=== PATIENT | male | born 1985 | race African-American/Black ===

== ENCOUNTER 2018-04-09 22:51 | Inpatient (IN) | payer SELFPAY ==
[~2018-04-09] VITALS: Ht 190.5 cm; Wt 127.9 kg
[2018-04-09 23:32] VITALS: Ht 190.5 cm; Wt 127.9 kg
[2018-04-10 03:06] LABS: BASOPHIL % 0.6 % (0-2); PLATELET COUNT 190 x10^3mcL (130-400); RED CELL DISTRIBUTION WIDTH 13.1 % (11.5-14.5)
[2018-04-10 03:13] LABS: CALCIUM 8.5 mg/dL (8.5-10.1); CARBON DIOXIDE 19.4 mmol/L (21-32); CHLORIDE SERUM 95 mmol/L (98-107); CREATININE SERUM 1.2 mg/dL (0.7-1.3); GFR1 > 60 mL/min; POTASSIUM SERUM 3.9 mmol/L (3.5-5.1); SODIUM SERUM 130 mmol/L (136-145)
[2018-04-10 03:15] LABS: ALBUMIN 3.7 g/dL (3.4-5.0); ALKALINE PHOSPHATASE 141 U/L (46-116); ALT/SGPT 48 U/L (16-63); AST/SGOT 11 U/L (15-37); BILIRUBIN TOTAL 0.47 mg/dL (0.20-1.00); LIPASE 731 IU/L (73-393); TOTAL PROTEIN, SERUM 8.2 g/dL (6.4-8.2)
[2018-04-10 03:32] LABS: microscopic required? NO
[2018-04-10 04:17] LABS: GLUCOSE SERUM 590 mg/dL (74-106)
[2018-04-10 04:43] LABS: UA SPECIFIC GRAVITY <=1.005 (1.005-1.035); urine erythrocyte NEGATIVE (NEGATIVE)
[2018-04-10 04:50] LABS: AMPHETAMINE QUAL UR NONE DETECTED (See below)
[2018-04-10 05:37] LABS: AMYLASE 48 U/L (25-115); CHOLESTEROL 177 mg/dL (<200); MAGNESIUM 2.1 mg/dL (1.8-2.4); PHOSPHOROUS 3.5 mg/dL (2.5-4.9)
[2018-04-10 05:38] LABS: CHOLESTEROL/HDL RATIO 9.3; HDL CHOLESTEROL 19 mg/dL (40-60); TRIGLYCERIDES 881 mg/dL (<150)
[2018-04-10 05:46] LABS: FREE T4 1.28 ng/dL (0.76-1.46); FREE THYROXINE INDEX 2.8 ug/dL (1.4-4.5); T4(THYROXINE) 8.2 ug/dL (4.7-13.3)
[2018-04-10 06:15] VITALS: BP 158/112
[2018-04-10 09:07] LABS: CALCIUM 8.4 mg/dL (8.5-10.1); CHLORIDE SERUM 100 mmol/L (98-107); CREATININE SERUM 0.9 mg/dL (0.7-1.3); GFR1 > 60 mL/min; GLUCOSE SERUM 327 mg/dL (74-106); POTASSIUM SERUM 3.3 mmol/L (3.5-5.1); SODIUM SERUM 136 mmol/L (136-145)
[2018-04-10 09:13] LABS: BASOPHIL % 0.4 % (0-2); PLATELET COUNT 196 x10^3mcL (130-400); RED CELL DISTRIBUTION WIDTH 13.1 % (11.5-14.5)
[2018-04-10 09:39] VITALS: BP 148/100
[2018-04-10 14:26] VITALS: BP 143/86
[2018-04-10 18:02] VITALS: BP 154/104
[2018-04-10 20:41] VITALS: BP 140/88
[2018-04-11 05:50] VITALS: BP 140/95
[2018-04-11 06:14] LABS: CALCIUM 8.5 mg/dL (8.5-10.1); CARBON DIOXIDE 25.4 mmol/L (21-32); CHLORIDE SERUM 103 mmol/L (98-107); CREATININE SERUM 0.8 mg/dL (0.7-1.3); GFR1 > 60 mL/min; GLUCOSE SERUM 217 mg/dL (74-106); LIPASE 296 IU/L (73-393); POTASSIUM SERUM 3.7 mmol/L (3.5-5.1); SODIUM SERUM 138 mmol/L (136-145)
[2018-04-11 07:06] LABS: BASOPHIL % 0.6 % (0-2); PLATELET COUNT 183 x10^3mcL (130-400); RED CELL DISTRIBUTION WIDTH 13.4 % (11.5-14.5)
[2018-04-11 09:12] VITALS: BP 147/93
[2018-04-11] MEDS ORDERED: ECO81 PO (11:59)
[2018-04-11] MEDS ORDERED: BG FS (12:00)
[2018-04-11] MEDS ORDERED: METFORMIN HYDR500 M1 PO (12:01)
[2018-04-11 13:19] VITALS: BP 147/93
[2018-04-11 13:43] VITALS: BP 165/97
== END 2018-04-11 14:15 | disposition home or self-care (01) | DRG 637 ==
LOC: ED 22:51 → DU 04-10 04:30
PROVIDERS: Emergency Medicine; Family Medicine
DX: E11.65 Type 2 diabetes mellitus with hyperglycemia (principal); K85.90 Acute pancreatitis without necrosis or infection, unspecified; E87.1 Hypo-osmolality and hyponatremia; K52.9 Noninfective gastroenteritis and colitis, unspecified; L72.3 Sebaceous cyst; Z71.3 Dietary counseling and surveillance
CPT/HCPCS: 36600; 82962; 83880; 84439; G0480; J1885; J2270; J2405; J7030; Q0092

== ENCOUNTER 2018-06-05 22:12 | Inpatient (IN) | payer SELFPAY ==
[~2018-06-05] VITALS: Ht 190.5 cm; Wt 107.0 kg
[~2018-06-05 22:12] MED LIST: BG FS; ECO81 PO; METFORMIN HYDR500 M1 PO
[2018-06-05 22:19] VITALS: Ht 190.5 cm; Wt 107.0 kg
[2018-06-05 22:57] LABS: BASOPHIL % 0.6 % (0-2); PLATELET COUNT 130 x10^3mcL (130-400); RED CELL DISTRIBUTION WIDTH 14.1 % (11.5-14.5)
[2018-06-05 23:10] LABS: BILIRUBIN TOTAL 0.6 mg/dL (0.20-1.00); CALCIUM 9.2 mg/dL (8.5-10.1); CREATININE SERUM 1.5 mg/dL (0.7-1.3); POTASSIUM SERUM 3.4 mmol/L (3.5-5.1)
[2018-06-05 23:14] LABS: TOTAL PROTEIN, SERUM 9.3 g/dL (6.4-8.2)
[2018-06-05 23:34] LABS: CARBON DIOXIDE 8.6 mmol/L (21-32)
[2018-06-06 01:42] LABS: UA SPECIFIC GRAVITY 1.025 (1.005-1.035); microscopic required? YES; urine erythrocyte 2+ (NEGATIVE)
[2018-06-06 01:43] LABS: AMYLASE 172 U/L (25-115)
[2018-06-06 01:44] LABS: CHOLESTEROL 235 mg/dL (<200); CHOLESTEROL/HDL RATIO 7.8; HDL CHOLESTEROL 30 mg/dL (40-60); LIPASE 1656 IU/L (73-393); TRIGLYCERIDES 634 mg/dL (<150)
[2018-06-06 01:57] LABS: FREE T4 0.85 ng/dL (0.76-1.46); FREE THYROXINE INDEX 1.7 ug/dL (1.4-4.5); T4(THYROXINE) 4.7 ug/dL (4.7-13.3)
[2018-06-06 02:03] LABS: T3 TOTAL 0.61 ng/mL
[2018-06-06 02:43] LABS: AMPHETAMINE QUAL UR NONE DETECTED (See below)
[2018-06-06 03:05] VITALS: BP 154/97
[2018-06-06 05:14] LABS: BASOPHIL % 0.7 % (0-2); PLATELET COUNT 133 x10^3mcL (130-400); RED CELL DISTRIBUTION WIDTH 13.9 % (11.5-14.5)
[2018-06-06 05:17] LABS: CHLORIDE SERUM 113 mmol/L (98-107); CREATININE SERUM 1.2 mg/dL (0.7-1.3); GFR1 > 60 mL/min; GLUCOSE SERUM 181 mg/dL (74-106); MAGNESIUM 2.6 mg/dL (1.8-2.4); SODIUM SERUM 144 mmol/L (136-145)
[2018-06-06 05:22] LABS: CARBON DIOXIDE 9.5 mmol/L (21-32); POTASSIUM SERUM 2.4 mmol/L (3.5-5.1)
[2018-06-06 05:33] VITALS: BP 148/88
[2018-06-06 07:33] VITALS: BP 138/89
[2018-06-06 09:40] LABS: BASOPHIL % 0.7 % (0-2); PLATELET COUNT 129 x10^3mcL (130-400); RED CELL DISTRIBUTION WIDTH 13.9 % (11.5-14.5)
[2018-06-06 09:52] LABS: CALCIUM 8.8 mg/dL (8.5-10.1); CARBON DIOXIDE 14.1 mmol/L (21-32); CHLORIDE SERUM 109 mmol/L (98-107); CREATININE SERUM 1.2 mg/dL (0.7-1.3); GFR1 > 60 mL/min; GLUCOSE SERUM 172 mg/dL (74-106); MAGNESIUM 2.4 mg/dL (1.8-2.4); PHOSPHOROUS 1.2 mg/dL (2.5-4.9); POTASSIUM SERUM 3.1 mmol/L (3.5-5.1); SODIUM SERUM 140 mmol/L (136-145)
[2018-06-06 11:06] VITALS: BP 82/67
[2018-06-06 13:43] LABS: BASOPHIL % 1.1 % (0-2)
[2018-06-06 13:44] LABS: PLATELET COUNT 107 x10^3mcL (130-400)
[2018-06-06 13:47] LABS: CALCIUM 8.4 mg/dL (8.5-10.1); CARBON DIOXIDE 12.3 mmol/L (21-32); CHLORIDE SERUM 109 mmol/L (98-107); CREATININE SERUM 1.3 mg/dL (0.7-1.3); GFR1 > 60 mL/min; GLUCOSE SERUM 236 mg/dL (74-106); MAGNESIUM 2.3 mg/dL (1.8-2.4); PHOSPHOROUS 1.1 mg/dL (2.5-4.9); POTASSIUM SERUM 3.1 mmol/L (3.5-5.1); SODIUM SERUM 140 mmol/L (136-145)
[2018-06-06 15:32] VITALS: BP 125/79
[2018-06-06 17:21] LABS: CALCIUM 8.6 mg/dL (8.5-10.1); CARBON DIOXIDE 13.2 mmol/L (21-32); CHLORIDE SERUM 111 mmol/L (98-107); CREATININE SERUM 1.2 mg/dL (0.7-1.3); GFR1 > 60 mL/min; GLUCOSE SERUM 253 mg/dL (74-106); POTASSIUM SERUM 3.3 mmol/L (3.5-5.1); SODIUM SERUM 139 mmol/L (136-145)
[2018-06-06 21:16] LABS: CARBON DIOXIDE 13.5 mmol/L (21-32); CHLORIDE SERUM 108 mmol/L (98-107); CREATININE SERUM 1.1 mg/dL (0.7-1.3); GFR1 > 60 mL/min; GLUCOSE SERUM 268 mg/dL (74-106); POTASSIUM SERUM 3.2 mmol/L (3.5-5.1); SODIUM SERUM 139 mmol/L (136-145)
[2018-06-06 21:18] LABS: PHOSPHOROUS 0.9 mg/dL (2.5-4.9)
[2018-06-07 01:17] LABS: CALCIUM 8.8 mg/dL (8.5-10.1); CARBON DIOXIDE 13.4 mmol/L (21-32); CHLORIDE SERUM 110 mmol/L (98-107); CREATININE SERUM 1.1 mg/dL (0.7-1.3); GFR1 > 60 mL/min; GLUCOSE SERUM 223 mg/dL (74-106); POTASSIUM SERUM 3.2 mmol/L (3.5-5.1); SODIUM SERUM 140 mmol/L (136-145)
[2018-06-07 05:24] VITALS: BP 121/69
[2018-06-07 05:46] LABS: CALCIUM 8.4 mg/dL (8.5-10.1); CARBON DIOXIDE 17.1 mmol/L (21-32); CHLORIDE SERUM 114 mmol/L (98-107); CREATININE SERUM 1.1 mg/dL (0.7-1.3); GFR1 > 60 mL/min; GLUCOSE SERUM 198 mg/dL (74-106); POTASSIUM SERUM 3.1 mmol/L (3.5-5.1); SODIUM SERUM 143 mmol/L (136-145)
[2018-06-07 06:18] LABS: MAGNESIUM 1.9 mg/dL (1.8-2.4); PHOSPHOROUS 1.2 mg/dL (2.5-4.9)
[2018-06-07 08:22] LABS: CALCIUM 8.5 mg/dL (8.5-10.1); CARBON DIOXIDE 19.9 mmol/L (21-32); CHLORIDE SERUM 113 mmol/L (98-107); GFR1 > 60 mL/min; GLUCOSE SERUM 201 mg/dL (74-106); POTASSIUM SERUM 3.4 mmol/L (3.5-5.1); SODIUM SERUM 143 mmol/L (136-145)
[2018-06-07 09:15] VITALS: BP 128/81
[2018-06-07 17:19] VITALS: BP 130/70
[2018-06-07 20:47] VITALS: BP 127/87
[2018-06-08 05:28] VITALS: BP 99/63
[2018-06-08 06:56] LABS: CALCIUM 8.9 mg/dL (8.5-10.1); CARBON DIOXIDE 19.8 mmol/L (21-32); CHLORIDE SERUM 104 mmol/L (98-107); GFR1 > 60 mL/min; GLUCOSE SERUM 277 mg/dL (74-106); MAGNESIUM 1.9 mg/dL (1.8-2.4); PHOSPHOROUS 2.5 mg/dL (2.5-4.9); POTASSIUM SERUM 3.3 mmol/L (3.5-5.1); SODIUM SERUM 139 mmol/L (136-145)
[2018-06-08 07:37] LABS: BASOPHIL % 0.6 % (0-2); RED CELL DISTRIBUTION WIDTH 13.6 % (11.5-14.5)
[2018-06-08 07:38] LABS: PLATELET COUNT 112 x10^3mcL (130-400)
[2018-06-08 09:34] VITALS: BP 129/83
[2018-06-08 16:50] VITALS: BP 125/79
[2018-06-08 21:00] VITALS: BP 116/66
[2018-06-09 05:37] VITALS: BP 108/7
[2018-06-09 07:53] VITALS: BP 112/67
[2018-06-09 10:33] VITALS: BP 112/67
[2018-06-09] MEDS ORDERED: METFORMIN500 M1 PO (11:15)
[2018-06-09 12:00] VITALS: BP 107/68
== END 2018-06-09 12:03 | disposition home or self-care (01) | DRG 637 ==
LOC: ED 22:12 → IC 06-06 00:05 → DU 06-07 16:06 → MU 06-07 20:00
PROVIDERS: Emergency Medicine; Internal Medicine
DX: E11.10 Type 2 diabetes mellitus with ketoacidosis without coma (principal); K85.90 Acute pancreatitis without necrosis or infection, unspecified; N17.0 Acute kidney failure with tubular necrosis; Z91.19 Patient's noncompliance with other medical treatment and regimen; E78.5 Hyperlipidemia, unspecified; F12.90 Cannabis use, unspecified, uncomplicated; E83.41 Hypermagnesemia; E83.39 Other disorders of phosphorus metabolism; K59.00 Constipation, unspecified; R63.4 Abnormal weight loss; E87.6 Hypokalemia; Z79.84 Long term (current) use of oral hypoglycemic drugs; Z79.899 Other long term (current) drug therapy; Z87.442 Personal history of urinary calculi; Z79.82 Long term (current) use of aspirin; Z68.29 Body mass index [BMI] 29.0-29.9, adult
CPT/HCPCS: 82962; 83880; 84439; J1815; J2405; J3480; J3490; J7030; Q0092

== ENCOUNTER 2019-06-20 21:48 | Emergency (ER) | payer MEDICAID ==
[~2019-06-20] VITALS: Ht 190.5 cm; Wt 121.1 kg
[~2019-06-20 21:48] MED LIST changes: +METFORMIN500 M1 PO
[2019-06-20 21:54] VITALS: BP 164/108; Ht 190.5 cm; Wt 121.1 kg
== END 2019-06-20 22:56 | disposition home or self-care (01) ==
LOC: ED 21:48
DX: S62.306A Unspecified fracture of fifth metacarpal bone, right hand, initial encounter for closed fracture (principal); E11.9 Type 2 diabetes mellitus without complications; Z87.442 Personal history of urinary calculi; W22.8XXA Striking against or struck by other objects, initial encounter; Y93.89 Activity, other specified; Y92.89 Other specified places as the place of occurrence of the external cause; Y99.8 Other external cause status
CPT/HCPCS: 82962